=== PATIENT | male | born 1970 | race Hispanic/Latino ===

== ENCOUNTER 2018-05-11 13:58 | Emergency (ER) | payer BC, OTHER ==
[2018-05-11 14:14] VITALS: BMI 26.6
[2018-05-11 14:18] VITALS: RESP 18; TEMP 99.2; O2SAT 98
--- NOTE | 2018-05-11 14:27 | ED PDOC ---
Arrival/HPI - General Time Seen by Provider: 05/11/18 14:04 Historian: Patient - History of Present Illness Narrative History of Present Illness (Text): 05/11/18 14:15 48 year old male, whose past medical history includes hypertension, who is accompanied by family and presents to the emergency department complaining of hematuria. Patient had previous hematuria in the past but states never had cystoscopy afterwards, hematuria had cleared. This time, urine is more grossly bloody with clots. Feeling as though there is still urine stuck in the bladder. Denies fever, chest pain, dyspnea. PMD: Dr. Arias Past Medical History - Provider Review Nursing Documentation Reviewed: Yes - Infectious Disease Hx of Infectious Diseases: None - Cardiac Hx Hypertension: Yes - Psychiatric Hx Substance Use: No Family/Social History - Physician Review Nursing Documentation Reviewed: Yes Family/Social History: No Known Family HX Smoking Status: Never Smoked Hx Alcohol Use: No Hx Substance Use: No Allergies/Home Meds Allergies/Adverse Reactions: Allergies No Known Allergies Allergy (Verified 05/11/18 14:14) Review of Systems - Physician Review All systems were reviewed & negative as marked: Yes - Review of Systems Constitutional: absent: Fevers Cardiovascular: absent: Chest Pain Genitourinary Male: Hematuria (bright red blood, forming multiple clots.) Physical Exam - Physical Exam Narrative Physical Exam (Text): Constitutional: No acute distress. Head: Normocephalic. Atraumatic. Eyes: PERRL. ENT: Moist mucous membranes. Neck: Supple. Cardiovascular: Regular rate. Chest: No tenderness. Respiratory: Clear to auscultation bilaterally. GI: Suprapubic tenderness with distention. Back: No CVA tenderness. Musculoskeletal: No tenderness or swelling of extremities. Skin: No rash. Neurologic: Alert, no focal deficit. Vital Signs Reviewed: Yes Vital Signs Temp Pulse Resp BP Pulse Ox 05/11/18 14:17 99.2 F 101 H 18 152/104 H 98 Temperature: Afebrile Blood Pressure: Hypertensive Pulse: Regular Respiratory Rate: Normal Appearance: Positive for: Well-Appearing, Non-Toxic, Comfortable Pain Distress: None Mental Status: Positive for: Alert and Oriented X 3 Medical Decision Making ED Course and Treatment: 05/11/18 14:18 Impression: 48 year old male with hematuria and dysuria. Physical exam shows suprapubic tenderness with distention. Plan: -- Labs -- Urinalysis -- Urine Culture -- Reassess and disposition Progress Notes: [place] placed, initial clots, then clear urine. UA negative. Labs unremarkable. Changed to leg bag. Dr. Novoa agrees with management and states will see patient in his office this week. - Lab Interpretations Lab Results: 05/11/18 14:41 05/11/18 14:41 Lab Results 05/11/18 15:03: Urine Color Yellow, Urine Appearance Clear, Urine pH 6.5, Ur Specific [place] 1.025, Urine Protein Trace H, Urine Glucose (UA) Negative, Urine Ketones 15 H, Urine Blood Small H, Urine Nitrate Negative, Urine Bilirubin Negative, Urine Urobilinogen 0.2, Ur Leukocyte Esterase Negative, Urine RBC 0 - 2, Urine WBC Negative, Ur Epithelial Cells None, Hyaline Casts 0 - 2 05/11/18 14:41: Sodium 144, Potassium 4.1, Chloride 97 L, Carbon Dioxide 28, Anion Gap 22 H, BUN 15, Creatinine 0.7 L, Est GFR ( Amer) > 60, Est GFR ( Non-Af Amer) > 60, Random Glucose 107, Calcium 8.9, Total Bilirubin 0.4, AST 36 , ALT 45, Alkaline Phosphatase 103, Total Protein 8.3, Albumin 4.6, Globulin 3.7 , Albumin/Globulin Ratio 1.2 05/11/18 14:41: WBC 10.2, RBC 4.72, Hgb 15.2, Hct 43.1, MCV 91.3, MCH 32.2, MCHC 35.3, RDW 14.2, Plt Count 330, MPV 9.5, Gran % 73.8 H, Lymph % (Auto) 20.0 L, [place] % (Auto) 5.5, Eos % (Auto) 0.2 L, Baso % (Auto) 0.5, Gran # 7.52 H, Lymph # (Auto) 2.0, [place] # (Auto) 0.6, Eos # (Auto) 0.0, Baso # (Auto) 0.05 - Scribe Statement The provider has reviewed the documentation as recorded by the Ariane Anderson Provider Scribe Attestation: All medical record entries made by the Willaibbassam were at my direction and personally dictated by me. I have reviewed the chart and agree that the record accurately reflects my personal performance of the history, physical exam, medical decision making, and the department course for this patient. I have also personally directed, reviewed, and agree with the discharge instructions and disposition. Disposition/Present on Arrival - Present on Arrival Any Indicators Present on Arrival: No History of DVT/PE: No History of Uncontrolled Diabetes: No Urinary Catheter: No History of Decub. Ulcer: No History Surgical Site Infection Following: None - Disposition Have Diagnosis and Disposition been Completed?: Yes Diagnosis: Hematuria, Urinary retention Disposition: HOME/ ROUTINE Disposition Time: 15:50 Patient Plan: Discharge Condition: STABLE Discharge Instructions (ExitCare): Blood in the Urine (Hematuria) in Adults, Urinary Retention Referrals: Layla Arias DO [Primary Care Provider] - Follow up with primary Mahamed Novoa MD [Staff Provider] - Follow up with primary
[2018-05-11 15:00] LABS: BASO # 0.05 K/mm3 (0.0-2.0); BASO % 0.5 % (0.0-3.0); EOS % 0.2 % (1.5-5.0); GRAN # 7.52 (1.4-6.5); GRAN % 73.8 % (50.0-68.0); HEMOGLOBIN 15.2 g/dL (14.0-18.0); MEAN CELL VOLUME 91.3 fl (80.0-105.0); MEAN CORPUSCULAR HEMOGLOBIN 32.2 pg (25.0-35.0); MEAN CORPUSCULAR HGB CONC 35.3 g/dl (31.0-37.0); MEAN PLATELET VOLUME 9.5 fl (7.0-11.0); MONO # 0.6 (0.1-0.6); MONO % 5.5 % (1.0-6.0); RBC 4.72 10^6/uL (3.5-6.1); RED CELL DISTRIBUTION WIDTH 14.2 % (11.5-14.5); WHITE BLOOD COUNT 10.2 10^3/ul (4.5-11.0)
[2018-05-11 15:01] LABS: ALB/GLOB RATIO 1.2 (1.1-1.8); ALBUMIN 4.6 g/dL (3.0-4.8); ALT/SGPT 45 U/L (7-56); AST/SGOT 36 U/L (17-59); BLOOD UREA NITROGEN 15 mg/dL (7-21); CALCIUM 8.9 mg/dL (8.4-10.5); GFR AFRICAN-AMERICAN > 60; GFR NON-AFRICAN AMERICAN > 60
[2018-05-11 15:15] LABS: PH,URINE 6.5 (4.7-8.0); URINE APPEARANCE CLEAR (CLEAR); URINE BILIRUBIN NEGATIVE (NEGATIVE); URINE BLOOD SMALL (NEGATIVE); URINE COLOR YELLOW (YELLOW); URINE GLUCOSE (UA) NEGATIVE (NEGATIVE); URINE LEUKOCYTE ESTERASE NEGATIVE Leu/uL (NEGATIVE); URINE PROTEIN TRACE mg/dL (<30 mg/dL); URINE UROBILINOGEN 0.2 E.U./dL (<1 E.U./dL)
[2018-05-11 15:18] LABS: URINE HYALINE CAST 0 - 2 /hpf; URINE RBC 0 - 2 /hpf (0-2); URINE WBC NEGATIVE /hpf (0-6)
[2018-05-11 16:12] VITALS: BP 155/95; PULSE 94
== END 2018-05-11 16:16 | disposition home or self-care (01) ==
LOC: ED 13:58
DX: R31.9 Hematuria, unspecified (principal); R33.9 Retention of urine, unspecified; I10 Essential (primary) hypertension